=== PATIENT | female | born 1995 | race Hispanic/Latino ===

== ENCOUNTER 2022-04-14 10:48 | Day surgery (SDC) | payer BC ==
[2022-04-13 15:10] VITALS: BP 138/72
[2022-04-13 15:24] LABS: HEMATOCRIT 38.8 % (36-48); MEAN CORPUSCULAR HEMOGLOBIN 29.5 pg (27.0-33.0); MEAN CORPUSCULAR HGB CONC 32.7 g/dL (32.0-36.0); RED BLOOD CELL COUNT(AUTO) 4.31 MIL/uL (4.00-5.50); RED CELL DISTRIBUTION WIDTH 13.2 % (11.0-15.5); WHITE BLOOD COUNT (AUTO) 8.1 K/uL (4.8-10.8)
[2022-04-13 15:26] LABS: APPEARANCE,URINE CLOUDY (CLEAR); BILIRUBIN,URINE NEGATIVE (NEGATIVE); COLOR,URINE YELLOW (YELLOW); GLUCOSE, URINE (UA) NEGATIVE (NEGATIVE); KETONES,URINE NEGATIVE (NEGATIVE); LEUKOCYTE ESTERASE ,URINE TRACE (NEGATIVE); NITRATE,URINE NEGATIVE (NEGATIVE); OCCULT BLOOD,URINE LARGE (NEGATIVE); PROTEIN,URINE 30 mg/dL (NEGATIVE); UROBILINOGEN,URINE 0.2 mg/dL (0.2-1.0)
[2022-04-13 15:35] LABS: INR 0.93 (0.85-1.15); PROTHROMBIN TIME 9.9 SEC (9.6-11.6)
[2022-04-13 15:36] LABS: PARTIAL THROMBOPLASTIN TIME 30.5 SEC (26.3-35.5)
[2022-04-13 15:37] LABS: ALBUMIN 3.8 g/dL (3.5-5.0); CREATININE 0.5 mg/dL (0.5-1.5); POTASSIUM 3.6 mmol/L (3.5-5.1); TOTAL PROTEIN, SERUM 7.8 g/dL (6.0-8.3)
[2022-04-13 15:44] LABS: RBC,URINE 26-50 /HPF (0-1)
[2022-04-13 15:45] LABS: BACTERIA,URINE Rare /HPF (None Seen); SQUAMOUS EPITHELIAL CELL,UR Few /HPF (0-2)
[2022-04-13 15:46] LABS: CALCIUM PHOSPHATE CRYSTALS,UR Few /LPF (None Seen)
[2022-04-14] VITALS (13 sets, daily range): BP systolic 113–122; BP diastolic 41–88
[~2022-04-14] VITALS: Ht 157.5 cm; Wt 93.1 kg
[~2022-04-14 10:48] MED LIST: LACTATED RINGERS 1000ML 1,000 ML IV SCH
[2022-04-14] MEDS: ZOSYN 3.375GM +NS 50ML IV SCH ×2 (11:10→13:30)
[2022-04-14] MEDS ORDERED: SUCCINYLCHOLINE CHLORIDE 20 MG/ML 10 ML VIAL ONE (13:10)
[2022-04-14] MEDS ORDERED: DEXAMETHASONE SOD PHOSPHATE 10MG/ML 1ML VIAL ONE (13:10)
[2022-04-14] MEDS ORDERED: LIDOCAINE PF 100MG/5ML (2%) SYRINGE 5ML ONE (13:10)
[2022-04-14] MEDS ORDERED: NEOSTIGMINE 5MG/5ML SYR IV ONE (13:11)
[2022-04-14] MEDS ORDERED: ONDANSETRON 4MG INJ ONE (13:11)
[2022-04-14] MEDS ORDERED: PROPOFOL 10 MG/ML 20ML VIAL IV ONE (13:11)
[2022-04-14] MEDS ORDERED: MIDAZOLAM HCL 1 MG/ML 2ML VIAL ONE (13:11)
[2022-04-14] MEDS ORDERED: GLYCOPYRROLATE 1 MG/5 ML SYRINGE ONE (13:11)
[2022-04-14] MEDS ORDERED: ROCURONIUM 10MG/1ML SYR 10 MG/ML ML ONE (13:11)
[2022-04-14] MEDS ORDERED: FENTANYL CITRATE PF 50 MCG/1 ML 2ML VIAL ONE ×2 (13:12→13:46)
== END 2022-04-14 16:10 ==
LOC: DAH 10:48
PROVIDERS: ATTEND Urology
DX: N20.0 Calculus of kidney (principal); Z79.01 Long term (current) use of anticoagulants
CPT/HCPCS: 80053; 85027; 85610; 85730; 87088; 87426; 81001; 36415; 74018; 71046; 76100; 93005; 50590; 81025; A6260; A4663; J7120; J3010 ×2; J3490; J1100; J2710; J0330; J2001; J2250; J2704; J2405; J2543 ×2; A4215; A4223; A4222; A4221; A4600